=== PATIENT | female | born 1980 ===

== ENCOUNTER 2016-07-06 11:43 | Emergency (ER) | payer OTHER ==
--- NOTE | 2016-07-06 12:02 | CPEKG ---
Heart Rate: 66 RR Interval: 909 P-R Interval: 180 QRSD Interval: 64 QT Interval: 376 QTC Interval: 394 P Chula: 37 QRS Chula: 59 T Wave Chula: 38 EKG Severity - ABNORMAL ECG - EKG Impression: SINUS RHYTHM EKG Impression: ST ELEVATION SUGGESTS PERICARDITIS Electronically Signed By: Jed Hurd 06-Jul-2016 12:19:53
[2016-07-06] MEDS ORDERED: NS 1,000 ML IV ONE (12:10)
[2016-07-06 12:17] LABS: % IMMATURE GRANULYOCYTES 0.3 % (0.0-1.1); ABSOLUTE IMMATURE GRANULOCYTES 0.02 10^3/uL (0.00-0.10); ADD DIFF? NO; ADD MORPH? NO; ADD SCAN? NO; ATYPICAL LYMPHOCYTE FLAG 10 (0-99); FRAGMENT RBC FLAG 0 (0-99); HEMATOCRIT 37.5 % (38.0-47.0); HEMOGLOBIN 13.5 g/dL (12.6-16.3); LEFT SHIFT FLG 0 (0-99); LIPEMIA HEMOLYSIS FLAG 90 (0-99); MEAN CELL HEMOGLOBIN 33.5 pg (27.9-34.1); MEAN CELL VOLUME 93.1 fL (81.5-99.8); MEAN PLATELET VOLUME 9.8 fL (8.7-11.7); PLATELET CLUMPS FLAG 0 (0-99); PLATELET COUNT 293 10^3/uL (150-400); RED BLOOD CELL COUNT 4.03 10^6/uL (4.18-5.33); RED CELL DISTRIBUTION WIDTH 13.6 % (11.5-15.2)
[2016-07-06 12:26] LABS: INR 1.13 (0.83-1.16); PROTIME(PATIENT) 14.4 SEC (12.0-15.0)
--- NOTE | 2016-07-06 12:34 | EDPHY ---
H & P Stated Complaint: cp all over chest and upper abd since last night/hx panic attacks Source: Patient - Personal History LMP (Females 10-55): 1-7 Days Ago Current Tetanus/Diphtheria Vaccine: Yes - Medical/Surgical History Hx Asthma: No Hx Chronic Respiratory Disease: No Hx Diabetes: No Hx Cardiac Disease: No Hx Renal Disease: No Hx Cirrhosis: No Hx Alcoholism: No Hx HIV/AIDS: No Hx Splenectomy or Spleen Trauma: No Other PMH: anxiety/panic attacks - Social History Smoking Status: Former smoker HPI/ROS: CHIEF COMPLAINT: Chest Pain HISTORY OF PRESENT ILLNESS: Chest pain this started late last night after work. It is retrosternal pain that radiates into the back. It is worse with palpation of the chest and inspiration. Also worse with exertion. Some nausea and 1 episode of vomiting yesterday morning before this. No nausea or vomiting at this time. No diaphoresis. No numbness or tingling. No pain that radiates into the arm, jaw or neck. No shortness of breath. No abdominal or urinary complaints. No recent trauma or injury. No previous incidence of venous thrombolic event. No lower extremity edema, erythema or pain. Mild-to- moderate symptoms that are worse when lying down. They do improve when sitting up and leaning forward. No other associated complaints or modifying factors. FAMILY HISTORY CARDIAC: None PRIOR CARDIAC WORKUP: none REVIEW OF SYSTEMS: Ten systems reviewed and are negative unless otherwise noted in the HPI EXAMINATION: General Appearance: Alert, no distress but anxious Head: normocephalic, atraumatic Eyes: Pupils equal and round, no conjunctival pallor or injection ENT, Mouth: Mucous membranes moist Neck: Normal inspection, supple, non-tender Respiratory: Lungs are clear to auscultation. No wheezing, rhonchi or crackles. Cardiovascular: Regular rate and rhythm . No murmur. No muffled heart sounds. No friction rub. Pulses intact distally and symmetrically. tenderness to palpation at all aspects of the anterior chest. Gastrointestinal: Abdomen is soft and nontender . No CVA tenderness. Back: non-tender, no bony abnormalities Neurological: A&O, nonfocal, normal gait . Strength is symmetric in all limbs. Skin: Warm and dry, no rash Extremities: Nontender, no pedal edema . No evidence of DVT in any limb. Psychiatric: Mood and affect normal DIFFERENTIAL DIAGNOSES: Including but not limited to in no particular order: Anxiety, pericarditis, Acute Chest Pain, ACS, Stable Angina, Pneumonia, PE, duodenitis, gastritis, esophagitis, GERD MDM: 12:10 p.m. chest pain without signs of acute ischemia on EKG. Pain is reproducible with palpation and inspiration. Her chest pain started last night. vital signs are stable without tachycardia, tachypnea or hypoxia. She does have the possibility of pericarditis on EKG with mild Diffuse ST elevation and mild PI depression. There is no acute ischemia. There is also the possibility of the component of anxiety to this. laboratory studies are within normal limits. The D-dimer is pending at this time. Chest x-ray has not been performed. 1:30 p.m. labs are well within normal limits. This includes a negative troponin and negative D-dimer. Chest x-ray is clear as read by me. Pending Radiology interpretation. This is likely pericarditis, thus we will order an echo to rule out any pericardial effusion. 2:50 p.m. No significant abnormality of the echocardiogram. There is trace regurgitation of mitral valve. No pericardial effusion. She is feeling better but not resolved. She is comfortable with discharge home at this time. Likely pericarditis without complication. Follow up with primary care physician and return to ER for any worsening pain or shortness of breath. EKG: Interpreted by Dr. Hurd rate is 66 beats per minute, sinus rhythm. Mild ST elevation diffusely. Mild PI depression inferior and anterior leads. No T-wave inversions other than AVR. No signs of acute ischemia. CO interval was 180. QT interval is 376. SUPERVISION: Patient was evaluated in conjunction with the supervising physician. Please see their note for details. (Kulwant Lewis) Constitutional: Initial Vital Signs Temperature (C) 37 C 07/06/16 11:47 Heart Rate 72 07/06/16 11:47 Respiratory Rate 18 07/06/16 11:47 Blood Pressure 124/78 H 07/06/16 11:47 O2 Sat (%) 94 07/06/16 11:47 O2 Delivery Mode Room Air Allergies/Adverse Reactions: Penicillins Allergy (Verified 07/06/16 11:46) Home Medications: Medication Instructions Recorded Colchicine 0.6 mg PO DAILY #6 capsule 07/06/16 Ondansetron Odt [Zofran Odt 4 mg 4 mg PO Q6 PRN #12 tab 07/06/16 (*)] Zoloft 100mg (*) 07/06/16 oxyCODONE HCL/ACETAMINOPHEN 1 each PO Q4-6PRN PRN #15 tablet 07/06/16 [Percocet 5-325 mg Tablet] Medical Decision Making Other Provider: My evaluation this patient is well appearing. She does complain of pain with deep inspiration or leaning forward. No rub appreciated on auscultation. Ultrasound pending. (Jed Hurd) - Data Points Laboratory Results: Laboratory Results 07/06/16 12:05 07/06/16 12:05 07/06/16 07/06/16 07/06/16 12:05 12:05 12:05 WBC RBC Hgb Hct MCV MCH MCHC RDW Plt Count MPV Neut % (Auto) Lymph % (Auto) Bucks % (Auto) Eos % (Auto) Baso % (Auto) Nucleat RBC Rel Count Absolute Neuts (auto) Absolute Lymphs (auto) Absolute Monos (auto) Absolute Eos (auto) Absolute Basos (auto) Absolute Nucleated RBC Immature Gran % Immature Gran # PT 14.4 SEC SEC (12.0-15.0) INR 1.13 (0.83-1.16) APTT 28.0 SEC SEC (23.0-38.0) D-Dimer 0.38 ug/mLFEU ug/mLFEU (0.00-0.50) Sodium 142 mEq/L mEq/L (134-144) Potassium 3.6 mEq/L mEq/L (3.5-5.2) Chloride 109 mEq/L mEq/L (97-110) Carbon Dioxide 23 mEq/l mEq/l (22-31) Anion Gap 10 mEq/L mEq/L (8-16) BUN 7 mg/dL mg/dL (7-23) Creatinine 0.7 mg/dL mg/dL (0.6-1.0) Estimated GFR > 60 Glucose 92 mg/dL mg/dL (70-100) Calcium 9.3 mg/dL mg/dL (8.5-10.4) Total Bilirubin 0.5 mg/dL mg/dL (0.1-1.4) Conjugated Bilirubin 0.3 mg/dL mg/dL (0.0-0.5) Unconjugated Bilirubin 0.2 mg/dL mg/dL (0.0-1.1) AST 21 IU/L IU/L (14-46) ALT 30 IU/L IU/L (9-52) Alkaline Phosphatase 74 IU/L IU/L (38-126) Troponin I < 0.012 ng/mL ng/mL (0-0.034) Total Protein 7.2 g/dL g/dL (6.3-8.2) Albumin 4.1 g/dL g/dL (3.5-5.0) Lipase 16.0 IU/L L IU/L (23-300) Beta HCG, Qual NEGATIVE 07/06/16 12:05 WBC 6.42 10^3/uL 10^3/uL (3.80-9.50) RBC 4.03 10^6/uL L 10^6/uL (4.18-5.33) Hgb 13.5 g/dL g/dL (12.6-16.3) Hct 37.5 % L % (38.0-47.0) MCV 93.1 fL fL (81.5-99.8) MCH 33.5 pg pg (27.9-34.1) MCHC 36.0 g/dL g/dL (32.4-36.7) RDW 13.6 % % (11.5-15.2) Plt Count 293 10^3/uL 10^3/uL (150-400) MPV 9.8 fL fL (8.7-11.7) Neut % (Auto) 60.3 % % (39.3-74.2) Lymph % (Auto) 27.6 % % (15.0-45.0) Bucks % (Auto) 8.3 % % (4.5-13.0) Eos % (Auto) 3.0 % % (0.6-7.6) Baso % (Auto) 0.5 % % (0.3-1.7) Nucleat RBC Rel Count 0.0 % % (0.0-0.2) Absolute Neuts (auto) 3.88 10^3/uL 10^3/uL (1.70-6.50) Absolute Lymphs (auto) 1.77 10^3/uL 10^3/uL (1.00-3.00) Absolute Monos (auto) 0.53 10^3/uL 10^3/uL (0.30-0.80) Absolute Eos (auto) 0.19 10^3/uL 10^3/uL (0.03-0.40) Absolute Basos (auto) 0.03 10^3/uL 10^3/uL (0.02-0.10) Absolute Nucleated RBC 0.00 10^3/uL 10^3/uL (0-0.01) Immature Gran % 0.3 % % (0.0-1.1) Immature Gran # 0.02 10^3/uL 10^3/uL (0.00-0.10) PT INR APTT D-Dimer Sodium Potassium Chloride Carbon Dioxide Anion Gap BUN Creatinine Estimated GFR Glucose Calcium Total Bilirubin Conjugated Bilirubin Unconjugated Bilirubin AST ALT Alkaline Phosphatase Troponin I Total Protein Albumin Lipase Beta HCG, Qual Medications Given: Discontinued Medications Sodium Chloride (Ns) 1,000 mls @ 0 mls/hr IV ONCE ONE PRN Reason: Wide Open Stop: 07/06/16 12:11 Last Admin: 07/06/16 12:20 Dose: 1,000 mls Ketorolac Tromethamine (Toradol) 30 mg IVP EDNOW ONE Stop: 07/06/16 14:57 Last Admin: 07/06/16 14:58 Dose: 30 mg Departure - Departure Disposition: Home, Routine, Self-Care Clinical Impression: Chest pain Qualifiers: Chest pain type: unspecified Qualified Code(s): R07.9 - Chest pain, unspecified Pericarditis Qualifiers: Pericarditis type: unspecified type Chronicity: acute Qualified Code(s): I30.9 - Acute pericarditis, unspecified Condition: Good Instructions: Chest Pain (ED), Transthoracic Echocardiogram (ED), Acute Pericarditis (ED) Additional Instructions: follow-up with primary care physician later this week for further care. Return to the ER for any worsening of chest pain or any shortness of breath Referrals: HI BROOKS NP [Primary Care Provider] - As per Instructions Prescriptions: Colchicine 0.6 mg PO DAILY #6 capsule Ondansetron Odt [Zofran Odt 4 mg (*)] 4 mg PO Q6 PRN #12 tab PRN Reason: Nausea/Vomiting, Use 1st oxyCODONE HCL/ACETAMINOPHEN [Percocet 5-325 mg Tablet] 1 each PO Q4-6PRN PRN # 15 tablet PRN Reason: Pain, Breakthrough
[2016-07-06 12:38] LABS: ALANINE AMINOTRANSFERASE 30 IU/L (9-52); ALBUMIN 4.1 g/dL (3.5-5.0); ALKALINE PHOSPHATASE 74 IU/L (38-126); ANION GAP 10 mEq/L (8-16); ASPARTATE AMINOTRANSFERASE 21 IU/L (14-46); BILIRUBIN,TOTAL 0.5 mg/dL (0.1-1.4); BILIRUBIN-CONJUGATED 0.3 mg/dL (0.0-0.5); BILIRUBIN-UNCONJUGATED 0.2 mg/dL (0.0-1.1); CALCIUM 9.3 mg/dL (8.5-10.4); CARBON DIOXIDE 23 mEq/l (22-31); CHLORIDE 109 mEq/L (97-110); CREATININE 0.7 mg/dL (0.6-1.0); GLOMERULAR FILTRATION RATE > 60; GLUCOSE 92 mg/dL (70-100); POTASSIUM 3.6 mEq/L (3.5-5.2); SODIUM 142 mEq/L (134-144); TOTAL PROTEIN 7.2 g/dL (6.3-8.2)
[2016-07-06 12:48] LABS: TROPONIN I < 0.012 ng/mL (0-0.034)
[2016-07-06] MEDS ORDERED: COLCHICINE 0.6 MG CAP/TAB PO SCH (14:00)
[2016-07-06 14:26] VITALS: TEMP 98.2
--- NOTE | 2016-07-06 14:26 | ECHO ---
[id number] + + [address] : : [place] [address] : : [phone] + + Adult Echocardiographic Report + -----+ :Name: ZOEY KING Date: 07/06/2016 01:42 PM : : Hospital Admission Number: [id number] Location: 14: :: 1980 Gender: Female Height: 68 in : :Age: 36 yrs Race: PTD Weight: 120 lb : :Reason For Study: CP, possible Pericarditis : : BSA: 1.6 meters2 : :History: No previous : + -----+ MMode/2D Measurements \T\ Calculations IVSd: 0.93 cm RVDd: 3.0 cm FS: 26.5 % LVOT diam: 1.6 cm LVPWd: 0.89 cm LVIDd: 4.2 cm EDV(Teich): LVOT area: LVIDs: 3.1 cm 76.5 ml 1.9 cm2 ESV(Teich): 36.6 ml EF(Teich): 52.2 % LVLd ap4: 7.7 cm SV(MOD-sp4): EDV(MOD-sp4): 38.0 ml 64.0 ml LVLs ap4: 6.2 cm ESV(MOD-sp4): 26.0 ml EF(MOD-sp4): 59.4 % Normal Measurement Values: + + :LVIDd (3.5-5.7cm) IVSd (0.6-1.1cm) LVPWd (0.6-1.1cm) Aortic Root (2.0-3.7cm)Left Atrium (1.5-4.0cm): :LV Vol(d) (76-115ml) LV Vol(s) (29-48ml) Ejec Fraction (50-65%)PV Chase (0.6- 1.2m/s) TV Chase (0.4-1.0m/s) : :MV E Chase (0.8-1.0m/s)MV A Chase (0.3-1.0m/s)LVOT Chase (0.7-1.2m/s) Asc Ao Chase ( 0.9-1.8m/s) : + + Doppler Measurements \T\ Calculations MV E max chase: MV V2 max: Ao mean P.2 mmHgLV V1 mean P.1 cm/sec 96.5 cm/sec Ao V2 mean: 1.9 mmHg MV A max chase: MV max P.4 cm/sec LV V1 mean: 65.2 cm/sec 3.7 mmHg Ao V2 VTI: 32.2 cm 63.9 cm/sec MV E/A: 1.1 MV V2 mean: CORBIN(I,D): 1.2 cm2 LV V1 VTI: 20.2 cm MV dec time: 59.0 cm/sec 0.19 sec MV mean P.6 mmHg MV V2 VTI: 29.9 cm MVA(VTI): 1.3 cm2 SV(LVOT): 38.6 ml PA V2 max: PI end-d chase: TR max chase: 93.0 cm/sec 105.9 cm/sec 209.0 cm/sec PA max PG: TR max P.5 mmHg 17.5 mmHg RAP systole: 15.0 mmHg RVSP(TR): 32.5 mmHg Left Ventricle The left ventricle is normal in size and function. There is normal left ventricular wall thickness. Ejection Fraction = 60%. Right Ventricle The right ventricle is normal in size and function. Atria The left atrial size is normal. Right atrial size is normal. The interatrial septum is intact with no evidence for an atrial septal defect. Mitral Valve The mitral valve is normal in structure and function. There is no mitral valve stenosis. There is trace mitral regurgitation. Tricuspid Valve The tricuspid valve is normal in structure and function. There is no tricuspid stenosis. There is mild tricuspid regurgitation. Right ventricular systolic pressure is normal. Aortic Valve The aortic valve is normal in structure and function. There is no aortic stenosis. There is no aortic insufficiency. Pulmonic Valve The pulmonic valve is normal in structure and function. There is no pulmonic valvular stenosis. trace to mild pulmonic valvular regurgitation. Great Vessels The aortic root is normal size. Conclusion A complete two-dimensional transthoracic echocardiogram was performed (2D, M-mode, Doppler and color flow Doppler). The left ventricle is normal in size and function. Ejection Fraction = 60%. There is trace mitral regurgitation. There is mild tricuspid regurgitation. Right ventricular systolic pressure is normal. The aortic valve is normal in structure and function. trace to mild pulmonic valvular regurgitation. Final Reading Physician: Abhilash Stevens signed on 07/06/2016 02:25 PM Ordering Physician: Kulwant Lewis Performed By: Teresa Amin
[2016-07-06] MEDS ORDERED: ONDANSETRON 4 MG/2 ML VIAL IVP ONE (14:29)
[2016-07-06] MEDS ORDERED: KETOROLAC 30 MG/1 ML SDV IVP ONE (14:56)
[2016-07-06 15:21] VITALS: BP 111/69; PULSE 64; RESP 16; O2SAT 98
== END 2016-07-06 15:20 | disposition home or self-care (01) ==
DX: I30.9 Acute pericarditis, unspecified (principal); Z87.891 Personal history of nicotine dependence
CPT/HCPCS: 96374; J1885; J2405